=== PATIENT | female | born 1960 | race Two or more races ===

== ENCOUNTER 2017-09-03 14:02 | Emergency (ER) | payer SELFPAY ==
[~2017-09-03] VITALS: Ht 154.9 cm; Wt 67.7 kg
[2017-09-03 14:21] VITALS: Ht 154.9 cm; Wt 67.7 kg
[2017-09-03 15:22] LABS: BASOPHIL % 0.5 % (0-2); PLATELET COUNT 235 x10^3mcL (130-400); RED CELL DISTRIBUTION WIDTH 13.5 % (11.5-14.5)
[2017-09-03 15:34] LABS: microscopic required? YES; urine erythrocyte NEGATIVE (NEGATIVE)
[2017-09-03 15:37] LABS: CARBON DIOXIDE 29.9 mmol/L (21-32); CHLORIDE SERUM 104 mmol/L (98-107); CREATININE SERUM 0.7 mg/dL (0.6-1.0); GFR1 > 60 mL/min; GLUCOSE SERUM 132 mg/dL (74-106); POTASSIUM SERUM 3.4 mmol/L (3.5-5.1); SODIUM SERUM 138 mmol/L (136-145)
[2017-09-03 15:40] LABS: ALBUMIN 3.8 g/dL (3.4-5.0); ALKALINE PHOSPHATASE 93 U/L (46-116); ALT/SGPT 20 U/L (14-59); AMYLASE 50 U/L (25-115); AST/SGOT 24 U/L (15-37); BILIRUBIN TOTAL 0.23 mg/dL (0.20-1.00); LIPASE 173 IU/L (73-393); TOTAL PROTEIN, SERUM 7.2 g/dL (6.4-8.2)
[2017-09-03 16:23] VITALS: BP 132/63
== END 2017-09-03 16:23 | disposition home or self-care (01) ==
LOC: ED 14:02
PROVIDERS: Emergency Medicine
DX: R10.9 Unspecified abdominal pain (principal); M79.7 Fibromyalgia
CPT/HCPCS: 83880; J2270; Q0092; Q0162